=== PATIENT | male | born 1955 | race Caucasian/White ===

== ENCOUNTER 2016-06-08 05:52 | Day surgery (SDC) | payer OTHER ==
[~2016-06-08] VITALS: Ht 167.6 cm; Wt 65.5 kg
[2016-06-08 06:58] VITALS: Ht 167.6 cm; Wt 65.5 kg
[2016-06-08] MEDS ORDERED: WELLBUTRIN (07:02)
[2016-06-08 07:16] VITALS: BP 109/72; PULSE 66; RESP 18
[2016-06-08] MEDS ORDERED: FENTAnyl 50 MCG/ML VIAL ONE (08:18)
[2016-06-08] MEDS ORDERED: MIDAZOLAM 1 MG/ML 2 ML INJ ONE (08:18)
[2016-06-08 08:37] VITALS: BP 109/73; RESP 20
--- NOTE | 2016-06-08 13:03 | GILP ---
DATE OF PROCEDURE: 06/08/2016 NAME OF PROCEDURES: Colonoscopy and biopsy. SURGEON: Humera Reyna MD PREOPERATIVE DIAGNOSIS: Screening colonoscopy. POSTOPERATIVE DIAGNOSES: 1. Colonoscopy all the way to the cecum. 2. Small rectal polyp was removed using the biopsy forceps. 3. Internal hemorrhoids. INDICATION FOR THE PROCEDURE: Mr. Drew Frank is a 60-year-old male patient who was scheduled for screening colonoscopy. The procedure and possible complications were well explained to the patient. The patient understood and consented to the procedure. DESCRIPTION OF PROCEDURE: Under the influence of fentanyl and Versed, the colonoscope was carefully introduced in the rectum and under direct vision, it was advanced all the way to the cecum. FINDINGS: The patient had a small rectal polyp and it was removed using the biopsy forceps. He had internal hemorrhoids. He tolerated the procedure very well and there was no complication from the procedure. At the end o f the procedure, he was awake with stable vital signs and he was discharged home to the care of his family. IMPRESSION: 1. Colonoscopy all the way to the cecum. 2. Small rectal polyp was removed using the biopsy forceps. 3. Internal hemorrhoids. PLAN: Next screening colonoscopy in 10 years. Dictated By: HUMERA BRADY/MEAGHAN Conf#: [id number] DID#: [id number] CC: HUMERA REYNA MD;*EndCC*
== END 2016-06-08 08:49 | disposition home or self-care (01) ==
LOC: GIL 05:52
PROVIDERS: ATTEND Internal Medicine Gastroenterology
DX: Z12.11 Encounter for screening for malignant neoplasm of colon (principal); K62.1 Rectal polyp; K64.8 Other hemorrhoids
CPT/HCPCS: 45380; 88305; J2250; J3010

== ENCOUNTER 2017-10-11 10:01 | Inpatient (IN) | END 2017-10-14 13:00 | disposition home or self-care (01) | DRG 418 ==

== ENCOUNTER 2017-10-19 14:59 | Outpatient (CLI) | END 2017-10-19 16:09 | disposition home or self-care (01) ==

== ENCOUNTER 2017-10-27 15:36 | Emergency (ER) | END 2017-10-27 18:05 | disposition home or self-care (01) ==

== ENCOUNTER 2017-11-02 14:00 | Outpatient (CLI) | END 2017-11-02 16:09 | disposition home or self-care (01) ==